=== PATIENT | female | born 1985 | race Two or more races ===

== ENCOUNTER 2017-11-20 12:38 | Emergency (ER) | payer SELFPAY ==
[~2017-11-20] VITALS: Ht 165.1 cm; Wt 81.6 kg
[2017-11-20 12:49] VITALS: BP 120/77
[2017-11-20] MEDS ORDERED: IBUPROFEN600 MG ORAL (13:12)
[2017-11-20] MEDS ORDERED: SILVADENE20 GM TP (13:12)
[2017-11-20] MEDS ORDERED: NORCO 5-325 TA1 EACH ORAL (13:12)
[2017-11-20 13:22] VITALS: BP 120/77
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
== END 2017-11-20 13:22 | disposition home or self-care (01) ==
LOC: EMR 13:22
DX: T25.122A Burn of first degree of left foot, initial encounter (principal); X10.2XXA Contact with fats and cooking oils, initial encounter; Y93.G3 Activity, cooking and baking; Y92.9 Unspecified place or not applicable
CPT/HCPCS: 99283